=== PATIENT | female | born 1955 | race Caucasian/White ===

== ENCOUNTER 2021-02-18 10:39 | Outpatient (CLI) | payer MEDICARE, OTHER ==
[~2021-02-18] VITALS: Ht 152.4 cm; Wt 68.0 kg
[2021-02-18 10:30] VITALS: BP 169/72
[2021-02-18 10:36] VITALS: BP 169/72
[2021-02-18] MEDS ORDERED: ONDANSETRON 4 MG/2 ML (SDV) Z0FRAN IV PRN (10:45)
[2021-02-18] MEDS ORDERED: CASIRIVIMAB/IMDEVIMAB 1,200 MG in NS (IVPB) 250 ML IV ONE (10:45)
[2021-02-18] MEDS ORDERED: EPINEPHrine INJECTION 1 MG/ML AMP IM PRN (10:45)
[2021-02-18] MEDS ORDERED: diphenhydrAMINE 50 MG/ML INJ (BENADRYL) IV PRN (10:45)
[2021-02-18] MEDS ORDERED: ACETAMINOPHEN 500 MG TAB (TYLENOL) PO PRN (10:45)
[2021-02-18 12:00] VITALS: BP 158/59
== END 2021-02-18 12:40 | disposition home or self-care (01) ==
LOC: INFUSION 10:39
PROVIDERS: ATTEND Family Medicine
DX: U07.1 COVID-19 (principal)